=== PATIENT | female | born 1930 | race African-American/Black ===

== ENCOUNTER 2016-08-02 16:31 | Inpatient (IN) ==
[2016-08-02] MEDS ORDERED: FAMOTIDINE 20 MG/2 ML VIAL IV STA (17:15)
[2016-08-02] MEDS ORDERED: methylPREDNISolone SOD SUC 125 MG/2 ML VIAL IV STA (17:15)
[2016-08-02] MEDS ORDERED: diphenhydrAMINE CAP 50 MG CAPSULE PO STA (17:15)
[2016-08-02] MEDS ORDERED: methylPREDNISolone SOD SUC 125 MG/2 ML VIAL ONE (17:19)
[2016-08-02] MEDS ORDERED: FAMOTIDINE 20 MG/2 ML VIAL IV ONE (17:19)
[2016-08-02] MEDS ORDERED: diphenhydrAMINE CAP 25 MG CAPSULE ONE (17:19)
--- NOTE | 2016-08-02 17:36 | Emergency Department Note ---
Onur Pinto Brittany, am scribing for, and in the presence of, Sony May MD 17:22. Lalo Pinto Charles R, MD, personally performed the services described in this documentation, ascribed by Marisa Mohr in my presence, and it is both accurate and complete 736 . Arrival - Arrival Chief Complaint: Allergic Reaction Stated Complaint: sent from doctor in [place] ED Nursing Triage Note: Pt was dx with UTI x 2 weeks ago - was treated with omnicef and pyridum - pt went back for check up - and was still having urinary s /s - pt was placed on Cipro and took 4 pills and her lips started swelling and she kept getting more swelling and she went to the clinic and was sent to ER Mode of Arrival: Wheelchair Limitations: No Limitations Source: Patient, Family, RN Notes Reviewed Time Seen by Provider: 08/02/16 17:07 - History of Present Illness HPI Narrative: Patient is a 85 y/o black female presenting to the ED accompanied by daughter with c/o lip swelling with an onset of 2 days ago. Daughter reports that she was diagnosed with UTI 2 weeks ago and was prescribed Omnicef and Pyridium, with no relief. Patient presented back to clinic 4 days ago due to still having dysuria and was then placed on Cipro. Daughter states that patient was doing well until 2 days ago when she began to have lip swelling. She states that yesterday she noticed patient was not feeling too well and also noticed blisters to patient's bilateral palms and feet. 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 Patient has some associated pain to blistered areas, but denies any fever, chills, SOB, chest pain, palpitations, abdominal pain, N/V/D, frequency, or urgency. 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 No other complaint/pain in the ED at this time. Date of Last Menstrual Period: hyster Allergies/Adverse Reactions: Allergies Allergy/AdvReac Type Severity Reaction Status Date / Time ciprofloxacin [From Cipro] Allergy Swelling Verified 08/02/16 16:44 of Lip/Tongue/Throat Sulfa (Sulfonamide Allergy RASH Verified 05/23/16 08:46 Antibiotics) Home Medications: Home Medications Medication Instructions Recorded Confirmed Type Docusate Sodium 100 mg PO DAILY 05/23/16 08/02/16 History Pantoprazole Tab [Protonix Tab] 40 mg PO DAILY 05/23/16 08/02/16 History amLODIPine [Norvasc] 10 mg PO DAILY 05/23/16 08/02/16 History Aspirin EC Tab 81 mg PO DAILY 08/02/16 08/02/16 History Ciprofloxacin HCl [Ciprofloxacin 250 mg PO Q12H 08/02/16 08/02/16 History Tab] Review of System - Review of System 12 point system: reviewed and no additional remarkable complaints except as stated - Review of System Constitutional: Absent: chills, fever Eyes: Absent: vision change Head/Ears/Nose/Throat: Absent: epistaxis Respiratory: Absent: respiratory distress Cardiovascular: Absent: chest pain, palpitations Gastrointestinal: Absent: abdominal pain, nausea, vomiting, diarrhea, constipation Genitourinary female: Absent: frequency, urgency Musculoskeletal: Present: arm pain (bilateral hands), leg pain (bilateral feet) Skin: Present: lesions (bilateral palms and feet) Neurological: Absent: headache Psychiatric: Absent: anxiety, depression Endocrine: Absent: fatigue Hematological/Lymphatic: Absent: easy bleeding, easy bruising Allergic/Immunologic: Present: facial swelling (lips) Medical,Surgical,& Family Hx - Medical History Cardio: History of: Hypertension Respiratory: History of: COPD - Social History Smoking Status: Never smoker Frequency of Alcohol Use: None Type of Drug Use: None Exam Vital Signs: Vital Signs Temperature 98.1 F 08/02/16 16:44 Pulse Rate 99 H 08/02/16 16:44 Respiratory Rate 20 08/02/16 16:44 Blood Pressure 143/97 08/02/16 16:44 O2 Sat by Pulse Oximetry 97 08/02/16 16:44 - General General appearance: alert, in no apparent distress - Head Head exam: Present: normocephalic. Absent: atraumatic (blistered lips) - Eye Eye exam: Present: PERRL, EOMI - ENT ENT exam: Present: mucous membranes moist, TM's normal bilaterally. Absent: normal oropharynx (blisters in mouth, ulcers to tongue) - Neck Neck exam: Present: full ROM, trachea midline. Absent: tenderness - Chest Chest inspection: Present: symmetric chest wall rise. Absent: tenderness - Respiratory Respiratory exam: Present: normal lung sounds bilaterally. Absent: rales, rhonchi, wheezes - Cardiovascular Cardiovascular exam: Present: regular rate, normal rhythm, normal heart sounds. Absent: murmur, rubs, gallop - Abdominal Exam Abdominal exam: Present: soft, normal bowel sounds. Absent: distention, tenderness - Extremities Exam Extremities exam: Present: full ROM. Absent: normal inspection (target lesions to bilateral palms; blisters to plantar aspect of bilateral feet), tenderness - Back Exam Back exam: Present: full ROM. Absent: tenderness - Neurological Exam Neurological exam: Present: alert, oriented X3 - Psychiatric Psychiatric exam: Present: normal affect, normal mood - Skin Skin exam: Present: warm, dry. Absent: intact (target lesions to bilateral palms; blisters to plantar aspect of bilateral feet) Course - Consultations Consultation #1: Dr. Harper will admit patient Time: 17:58 Results - Diagnostic Findings Procedure: Chest x-ray: report reviewed by me (1. 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 Cardiomegaly, 3. Mild scarring.) Critical Care Time Critical Care Time: Yes Total Critical Care Time: 60 Disposition Clinical Impression: Allergic reaction, Anaphylaxis, Otero-Glenn syndrome Case discussed with: patient, patient's family Disposition: Still a Patient Condition: Guarded Time of Disposition: 18:15
--- NOTE | 2016-08-02 17:50 | XRay Report ---
Exam: XR chest 1V portable Date: 08/02/2016 5:15 PM Indication: Shortness of breath Comparison: 09/05/2015 Technical:AP portable upright Findings: Ectasia ectasia and aneurysmal dilatation of the descending thoracic aorta is present the. Cardiomegaly is present. No obvious consolidating infiltrate or effusion with mild scarring in the perihilar region. There is some calcification tracheobronchial tree. Impression: 1. 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 Cardiomegaly 3. Mild scarring PROCEDURE INTERPRETED AT [facility] DEPARTMENT OF RADIOLOGY Final Report Signed by: Dr. Shiva Doyle
[2016-08-02 18:15] LABS: Basophils % 0.3 % (0.0-0.8); Eosinophils # 0.1 10*3/uL (0.0-0.87); Eosinophils % 0.9 % (0.00-10.9); Hematocrit 28.7 VOL% (35.7-47.0); Immature Granulocytes % 0.5 %; Immature Granulocytes Absolute 0.03 #; Lymphocytes # 1.2 10*3/uL (1.4-4.0); Lymphocytes % 18.2 % (21.3-54.2); Mean Corpuscular HGB Conc 31.7 GM/DL (32-36); Mean Corpuscular Hemoglobin 26 PG (27-34); Mean Corpuscular Volume 82.9 FL (87-102); Mean Platelet Volume 9.5 FL (9.6-12.0); Monocytes # 0.8 10*3/uL (0.11-0.8); Monocytes % 12.8 % (1.7-12.7); Neutrophils # 4.3 10*3/uL (1.4-7.4); Neutrophils % 67.3 % (38.7-73.9); Platelet Count 269 10*3/uL (130-400); Red Blood Count 3.46 10*6/uL (3.8-5.5); White Blood Count 6.3 10*3/uL (4.5-13.71)
[2016-08-02 18:16] LABS: Hemoglobin 9.1 GM/DL (12.0-16.0)
[2016-08-02] MEDS ORDERED: ACETAMINOPHEN 325 MG TABLET PO PRN (18:17)
[2016-08-02] MEDS ORDERED: ONDANSETRON 4 MG/2 ML VIAL IV PRN (18:17)
--- NOTE | 2016-08-02 18:17 | EKG Report ---
Stationary ECG Study [facility] ER Test Date: 08/02/2016 6:14:40 PM Pat Name: IRMA GOEL Department: Room: Gender: F Clerk Entry Level: SAGAR : 1930 Requested by: Sony Johnson Order Number: [id number] Ryan MD: JOSEY BARROW Intervals [place] Rate: 84 P: 71 PA: 164 QRS: 42 QRSD: 85 T: 76 QT: 367 QTc: 408 Interpretive Statements SINUS RHYTHM Electronically Signed On 08-03-16 09:21:04 DIRECTOR GAME by JOSEY BARROW [email or web address]
[2016-08-02 18:19] LABS: Albumin 2.9 G/DL (3.4-5.0); Bilirubin,Total 0.4 MG/DL (0.2-1.0); Calcium 8.8 MG/DL (8.5-10.1); Osmolality,Calculated 283.1 MOS/KG (273-304); Potassium 3.4 MMOL/L (3.5-5.1); Total Protein 8.5 G/DL (6.4-8.3); Troponin I Only 0.057 NG/ML (0.00-0.045)
--- NOTE | 2016-08-02 18:26 | Hospitalist History & Physical ---
Assessment and Plan (1) Allergic reaction Status: Acute Assessment and plan: solumedrol, pepcid, benadryl, monitor in ICU, most likely due to cipro Current Visit: Yes (2) Hypertension Status: Acute Assessment and plan: hold norvasc for now Current Visit: Yes (3) Oral thrush Status: Acute Assessment and plan: diflucan IV and nystatin citizen of [place] and swollen Current Visit: Yes History of Present Illness Chief complaint: throat tightening History of present illness: Ms. Palafox is a 85 yo black female presenting to the ED accompanied by daughter with c/o lip swelling and throat tightening beginning on Wednesday. The rash started on Wednesday. Patient was being treated for UTI. She received Pyridium and cefdinir on July 15 for treatment of UTI. Daughter said patient was still complaining of burning with urination they return to the clinic were given Cipro ofloxacin on July 29, 2016. Patient developed some redness and blisters on her palms of her hands and on the dorsal portion of her feet. Blistering around her mouth and difficulty swallowing began today and she brought her to [facility]. [facility] transported her here for admission. She read received Solu-Medrol IV Benadryl IV and Pepcid IV and will be monitored in the ICU overnight. She is a DNI. She most likely had an allergic reaction to cipro. On examination patient had severe oral thrush. Home Medications Medication Instructions Recorded Confirmed Type Docusate Sodium 100 mg PO DAILY 05/23/16 08/02/16 History Pantoprazole Tab [Protonix Tab] 40 mg PO DAILY 05/23/16 08/02/16 History amLODIPine [Norvasc] 10 mg PO DAILY 05/23/16 08/02/16 History Aspirin EC Tab 81 mg PO DAILY 08/02/16 08/02/16 History Ciprofloxacin HCl [Ciprofloxacin 250 mg PO Q12H 08/02/16 08/02/16 History Tab] Allergies Allergy/AdvReac Type Severity Reaction Status Date / Time ciprofloxacin [From Cipro] Allergy Swelling Verified 08/02/16 16:44 of Lip/Tongue/Throat Sulfa (Sulfonamide Allergy RASH Verified 05/23/16 08:46 Antibiotics) Medical,Surgical,& Family Hx - Medical History Cardio: History of: Hypertension Respiratory: History of: Bronchitis, COPD - Surgical History Abdominal Surgeries: Surgical HX of: Abdominal Surgery (Aortic aneurysm) Reproductive Surgeries: Surgical HX of;: Hysterectomy - Family History Family History: Reports;: Family Hypertension - Social History Smoking Status: Former smoker Frequency of Alcohol Use: None Type of Drug Use: None Marital Status: Lives With:: Children Functional capacity: independent ambulation - Constitutional Constitutional: Present: fatigue, fever(s), headache(s) - EENT Eyes: Absent: blurry vision, diplopia Ears: Present: decreased hearing. Absent: ear discharge Nose, mouth and throat: Present: headache(s), sore throat - Cardiovascular Cardiovascular: Present: edema. Absent: chest pain at rest, dyspnea, dyspnea on exertion - Respiratory Respiratory: Present: cough. Absent: dyspnea, dyspnea on exertion, wheezing - Gastrointestinal Gastrointestinal: Present: constipation. Absent: nausea, vomiting - Genitourinary Genitourinary: Present: dysuria. Absent: difficulty urinating - Neurological Neurological: Present: headache(s). Absent: dizziness, syncope - Psychiatric Psychiatric: Absent: anxiety, depression - Endocrine Endocrine: Present: cold intolerance, fatigue - Hematologic/Lymphatic Hematologic/Lymphatic: Absent: easy bleeding, easy bruising Exam - Constitutional Vitals: Period Temp Pulse Resp BP Sys/Renee Pulse Ox Last 24 Hr 98.1 F 99 20 143/97 97 General appearance: normal weight, mild distress - Head Head exam: Present: normal inspection, normocephalic - Eye Eye exam: Present: EOMI. Absent: scleral icterus Pupils: Present: KEVIN, normal accommodation - ENT ENT exam: Present: normal exam, normal external ear exam - Neck Neck exam: Present: lymphadenopathy. Absent: thyromegaly - Respiratory Respiratory exam: Present: clear to auscultation bilaterally, decreased breath sounds. Absent: rhonchi, wheezes - Cardiovascular Cardiovascular exam: Present: tachycardia. Absent: systolic murmur - GI/Abdominal GI/Abdominal exam: Present: normal bowel sounds, soft. Absent: tenderness - Extremities Exam Extremities exam: Present: normal capillary refill, edema - Neurological Exam Neurological exam: Present: alert, oriented X3, CN II-XII intact, reflexes normal. Absent: motor sensory deficit - Psychiatric Psychiatric exam: Present: normal affect, normal mood - Skin Skin exam: Present: erythema, rash, urticaria, vesicles Results - Labs CBC & BMP: 08/02/16 17:44 08/02/16 17:44 Lab Results: I have reviewed the past 24 hour labs - EKG EKG shows: sinus rhythm - Diagnostic Findings Procedure: Chest x-ray: report reviewed by me (CM, stable aneursym)
[2016-08-02] MEDS ORDERED: SODIUM CHLORIDE 0.45% 1,000 ML IV SCH (18:30)
[2016-08-02] MEDS: NYSTATIN 500,000 UNIT/5 ML UDCUP SWISH/SWAL SCH (20:24)
[2016-08-02] MEDS: POTASSIUM CHLORIDE INJ 40 MEQ in SODIUM CHLORIDE 0.45% 1,000 ML IV SCH (20:24)
[2016-08-02] MEDS: ENOXAPARIN 40 MG/0.4 ML SYRINGE SUBCUT SCH (20:24)
[2016-08-02] MEDS: FLUCONAZOLE INJ 200 MG in PREMIX 1 EACH IV SCH (20:25)
[2016-08-02 20:26] LABS: Apearance,Urine CLEAR (Clear); Bilirubin,Urine Negative (Negative); Blood, Urine Negative (Negative); Glucose,Urine (UA) Negative (Negative); Ketones,Urine 5 mg/dL (Negative); Mucus,Urine Occasional /LPF (Occasional); Nitrite,Urine Negative (Negative); Protein,Urine 30 MG/DL; RBC,Urine <1 /HPF (0-4); Squamous Epithelial Cell,Urine Occasional /HPF (0-10); Urine Color Yellow (Yellow); Urine Specific Gravity 1.011 (1.001-1.035); Urine Urobilinogen < 2.0 EU/DL (0.2-1.0); WBC,Urine 1 /HPF (0-6)
[2016-08-02] MEDS: diphenhydrAMINE 50 MG/1 ML VIAL IV SCH (23:14)
[2016-08-02] MEDS: methylPREDNISolone SOD SUC 125 MG/2 ML VIAL IV SCH (23:14)
[2016-08-03] MEDS: methylPREDNISolone SOD SUC 125 MG/2 ML VIAL IV SCH ×3 (05:07→17:30)
[2016-08-03] MEDS: diphenhydrAMINE 50 MG/1 ML VIAL IV SCH ×3 (05:07→17:31)
[2016-08-03] MEDS: FAMOTIDINE 20 MG/2 ML VIAL IV SCH ×2 (05:08→17:30)
[2016-08-03 05:34] LABS: Hemoglobin 8.9 GM/DL (12.0-16.0); Immature Granulocytes % 0.3 %; Immature Granulocytes Absolute 0.01 #; Lymphocytes # 0.5 10*3/uL (1.4-4.0); Lymphocytes % 13.1 % (21.3-54.2); Mean Corpuscular HGB Conc 31.8 GM/DL (32-36); Mean Corpuscular Hemoglobin 27 PG (27-34); Mean Corpuscular Volume 83.3 FL (87-102); Mean Platelet Volume 9.1 FL (9.6-12.0); Monocytes % 0.8 % (1.7-12.7); Neutrophils # 3.2 10*3/uL (1.4-7.4); Neutrophils % 85.8 % (38.7-73.9); Platelet Count 270 10*3/uL (130-400); Red Blood Count 3.36 10*6/uL (3.8-5.5); Red Cell Distribution Width 15.9 % (9.3-17.3); White Blood Count 3.7 10*3/uL (4.5-13.71)
[2016-08-03 06:02] LABS: Calcium 8.5 MG/DL (8.5-10.1)
[2016-08-03] MEDS: NYSTATIN 500,000 UNIT/5 ML UDCUP SWISH/SWAL SCH ×4 (09:19→20:44)
[2016-08-03] MEDS: POTASSIUM CHLORIDE INJ 40 MEQ in SODIUM CHLORIDE 0.45% 1,000 ML IV SCH (09:19)
--- NOTE | 2016-08-03 12:39 | Hospitalist Progress Note ---
Assessment and Plan - Time spent with patient Time spent with patient: Greater than 30 minutes (1) Allergic reaction Status: Acute Assessment and plan: Continue current management. She is stable. Will transfer to the floor. Current Visit: Yes Hospitalist: Subjective Interval history: No complaints, no overnight events. Exam - Constitutional Vitals: Period Temp Pulse Resp BP Sys/Renee Pulse Ox Last 24 Hr 98.0 F-99.5 F 84-101 12-25 116-160/77-98 91-96 General appearance: no acute distress - Head Head exam: Present: normocephalic, atraumatic - Eye Eye exam: Present: EOMI Pupils: Present: KEVIN - ENT ENT exam: Present: normal exam, other (excoriations over the mouth) - Neck Neck exam: Present: normal inspection - Respiratory Respiratory exam: Present: clear to auscultation bilaterally. Absent: rhonchi, wheezes - Cardiovascular Cardiovascular exam: Present: regular rate and rhythm. Absent: gallop, rubs, systolic murmur - GI/Abdominal GI/Abdominal exam: Present: normal bowel sounds, soft. Absent: distended, firm , guarding, tenderness, rebound - Extremities Exam Extremities exam: Present: normal inspection. Absent: calf tenderness, edema - Skin Skin exam: Present: rash (left palm, no blisters noted) Results - Labs CBC & BMP: 08/03/16 05:13 08/03/16 05:13 Lab Results: I have reviewed the past 24 hour labs
[2016-08-03] MEDS: FLUCONAZOLE INJ 200 MG in PREMIX 1 EACH IV SCH (20:44)
[2016-08-03] MEDS: ENOXAPARIN 40 MG/0.4 ML SYRINGE SUBCUT SCH (20:44)
[2016-08-03] MEDS ORDERED: traMADol 50 MG TABLET PO PRN (22:42)
[2016-08-04] MEDS: methylPREDNISolone SOD SUC 125 MG/2 ML VIAL IV SCH ×3 (00:29→11:51)
[2016-08-04] MEDS: diphenhydrAMINE 50 MG/1 ML VIAL IV SCH ×3 (00:29→11:51)
[2016-08-04] MEDS: POTASSIUM CHLORIDE INJ 40 MEQ in SODIUM CHLORIDE 0.45% 1,000 ML IV SCH ×2 (00:40→11:51)
[2016-08-04 05:46] LABS: Hematocrit 27.7 VOL% (35.7-47.0); Hemoglobin 8.7 GM/DL (12.0-16.0); Immature Granulocytes % 0.5 %; Immature Granulocytes Absolute 0.04 #; Lymphocytes # 0.4 10*3/uL (1.4-4.0); Lymphocytes % 5.7 % (21.3-54.2); Mean Corpuscular HGB Conc 31.4 GM/DL (32-36); Mean Corpuscular Hemoglobin 26 PG (27-34); Mean Corpuscular Volume 83.4 FL (87-102); Mean Platelet Volume 9.7 FL (9.6-12.0); Monocytes # 0.1 10*3/uL (0.11-0.8); Monocytes % 1.8 % (1.7-12.7); Neutrophils # 6.8 10*3/uL (1.4-7.4); Platelet Count 287 10*3/uL (130-400); Red Blood Count 3.32 10*6/uL (3.8-5.5); White Blood Count 7.4 10*3/uL (4.5-13.71)
[2016-08-04] MEDS: FAMOTIDINE 20 MG/2 ML VIAL IV SCH (06:02)
[2016-08-04 06:09] LABS: Band Neutrophils 1 % (0-10); Lymphocytes 6 % (20-55); Segmented Neutrophils 92 % (50-85); Total Cells Counted 100
[2016-08-04 06:10] LABS: Elliptocytes Few; Hypochromasia 1+; Platelet Estimate Adequate
[2016-08-04 06:11] LABS: Burr Cells Slight
[2016-08-04 06:22] LABS: Calcium 8.2 MG/DL (8.5-10.1); Potassium 4.9 MMOL/L (3.5-5.1)
[2016-08-04] MEDS: NYSTATIN 500,000 UNIT/5 ML UDCUP SWISH/SWAL SCH ×3 (08:17→13:57)
--- NOTE | 2016-08-04 09:08 | Physician Query Form ---
CLICK EDIT DOCUMENT TO SELECT QUERY ANSWER --> OK --> SIGN Sylvie Rousseau RN Clinical Nurse Informaticist W) [phone] (f) [phone] [email or web address] PROVIDERS: Make your selection(s) from the choices in EACH section by typing an "x" and enter comments in the comment section. Please use your independent medical judgment in providing your response. This request does not imply that any particular answer is desired or expected. CLINICAL INDICATORS: (Providers should not edit this section) Height: 5ft 2in Weight: 82 lbs Surgical Consultant BMI: 15.1 Nutritional supplements: Breeze with all meals Retail Planner notes: Underweight Based on the above, which following choice most accurately represents the patient's nutritional status? (x ) Malnutrition ( ) mild ( ) moderate (x ) severe ( ) Protein calorie malnutrition ( ) mild ( ) moderate ( ) severe ( ) Emaciation due to malnutrition ( ) Nutritional marasmus ( ) Cachexia ( ) Underweight ( ) No nutritional deficiency ( ) Other, please specify: ( ) Clinically unable to determine Mild Malnutrition (BMI < 18.5, % Normal Body Weight 85-95%) Moderate Malnutrition (BMI < 17, % Normal Body Weight 75-85%) Severe Malnutrition (BMI < 16, % Normal Body Weight < 75%) Source: [place] COMMENTS: Use of terms such as suspected, likely, or probable (associated with a specific diagnosis that is being evaluated, monitored, or treated as if it exists) are acceptable and can be restated in the discharge summary if not ruled out. MTDD
[2016-08-04] MEDS ORDERED: ALBUTEROL/IPRATROPIUM 3 ML NEB RESP TX PRN (09:50)
[2016-08-04 14:00] VITALS: BP 122/74
--- NOTE | 2016-08-04 14:41 | Discharge Summary ---
Hospital Course - Hospital Course Hospital Course: Drug reaction: Ms. Palafox presented with a blistering rash of her extremities and lips. Area of involvement was minimal. She had just started on Ciprofloxacin for a UTI and had taken four doses. She was admitted to the ICU initially on steroids, and offending agent was held. Her symptoms rapidly improved with blister healing noted. By discharge, she had met maximum benefit of hospitalization. - Time spent with patient Time with patient DS: Greater than 30 minutes Diagnosis - Discharge Diagnosis (1) Allergic reaction Status: Acute Discharge Plan - Discharge Data Disposition: Disch To Home/Self Care Condition at Discharge: Stable Discharge Diet: advance to your usual diet - Discharge Medications Continue amLODIPine [Norvasc] 10 mg PO DAILY Pantoprazole Tab [Protonix Tab] 40 mg PO DAILY Docusate Sodium 100 mg PO DAILY Aspirin EC Tab 81 mg PO DAILY Discontinued Ciprofloxacin HCl [Ciprofloxacin Tab] 250 mg PO Q12H - Follow Up or Referral - Forms/Instructions Instructions: Oral Candidiasis (GEN), Anaphylaxis (DC) Exam - Constitutional Vitals: Period Temp Pulse Resp BP Sys/Renee Pulse Ox Last 24 Hr 96.8 F-98.6 F 74-99 16-22 120-135/74-89 92-100 General appearance: normal weight, no acute distress - Head Head exam: Present: normal inspection, normocephalic, atraumatic - Eye Eye exam: Present: EOMI Pupils: Present: KEVIN - ENT ENT exam: Present: normal exam - Neck Neck exam: Present: normal inspection - Respiratory Respiratory exam: Present: clear to auscultation bilaterally - Cardiovascular Cardiovascular exam: Present: regular rate and rhythm - GI/Abdominal GI/Abdominal exam: Present: normal bowel sounds - Extremities Exam Extremities exam: Present: normal inspection Discharge Results Procedures and tests throughout hospitalization: Pending Orders 08/02/16 19:06 HSV Types 1 & 2 Antibodies Stat Labs on day of discharge: Labs from last 24 hours 08/04/16 08/04/16 05:22 05:21 WBC 7.4 D RBC 3.32 L Hgb 8.7 L Hct 27.7 L MCV 83.4 L MCH 26 L MCHC 31.4 L RDW 16.0 Plt Count 287 MPV 9.7 Neut % (Auto) 92.0 H Lymph % (Auto) 5.7 L Power % (Auto) 1.8 Eos % (Auto) 0.0 Baso % (Auto) 0.0 Neut # (Auto) 6.8 Lymph # (Auto) 0.4 L Power # (Auto) 0.1 L Eos # (Auto) 0.0 Baso # (Auto) 0.0 Total Counted 100 Immature Gran % 0.5 Nucleated RBC % 0.0 Immature Gran # 0.04 Segmented Neutrophils 92 H Band Neutrophils 1 Lymphocytes 6 L Monocytes 1 L Nucleated RBCs # 0.00 Platelet Estimate Adequate Hypochromasia 1+ [place] Cells Slight Elliptocytes Few Sodium 143 Potassium 4.9 Chloride 111 H Carbon Dioxide 20 L Anion Gap 16.9 H BUN 34 H Creatinine 1.10 H GFR Calculation 40 BUN/Creatinine Ratio 30.00 H Glucose 148 H Calculated Osmolality 295.0 Calcium 8.2 L Preliminary micro results at discharge 08/02/16 19:06 Blood Culture - Preliminary Blood No growth at 1 day DS: Provider Date of admission: 08/02/16 18:16 Primary care physician: . No PCP Attending physician on admission: Lona Acevedo MD Consults: 08/03/16 03:54 Consult to Wound Care [facility] [CONS] Routine Reason for Wound Care: Other Consult Comment: blister to bottom R ft Discharging clinician: Lona Acevedo MD Expected date of discharge: 08/04/16
[2016-08-06 13:39] LABS: HSV Ab Screen IgM by EIA Reactive (Negative)
== END 2016-08-04 16:00 | disposition home or self-care (01) | DRG 606 ==
LOC: N.ED 16:31 → N.EDINP 18:42 → N.ICU 18:46 → N.5E 08-03 14:32
PROVIDERS: ADMIT Internal Medicine; ATTEND Internal Medicine